=== PATIENT | female | born 1945 | race Caucasian/White ===

== ENCOUNTER 2019-07-14 14:24 | Inpatient (IN) ==
[2019-07-14] MEDS ORDERED: Isovue-370 500 ML BOTTLE IVP ONE (15:01)
[2019-07-14] MEDS ORDERED: 0.9 % Sodium Chloride 1,000 ML IVC ONE (16:43)
[2019-07-14] MEDS ORDERED: Piperacillin/Tazobactam 3.375 GM in 0.9 % Sodium Chloride Mini Bag 100 ML IVPB ONE (16:50)
[2019-07-14] MEDS ORDERED: Naloxone 0.4 MG/ML INJ IVP PRN (17:52)
[2019-07-14] MEDS ORDERED: hydrALAZINE 10 MG TABLET PO PRN (18:31)
[2019-07-14] MEDS: lisinopriL 5 MG TABLET PO SCH (20:19)
[2019-07-14] MEDS: *HR* Heparin 5,000 UNIT/ML VIAL SQ SCH (20:19)
[2019-07-14] MEDS: ALPRAZolam 0.5 MG TABLET PO SCH (22:07)
[2019-07-15] MEDS: Piperacillin/Tazobactam 3.375 GM in 0.9 % Sodium Chloride Mini Bag 100 ML IVPB SCH ×3 (01:32→16:49)
[2019-07-15 02:42] LABS: Basophils # 0.1 K/mcL (0.0-0.2); Basophils % 0.8 %; Eosinophils # 0.2 K/mcL (0.0-0.6); Eosinophils % 2.9 %; Hematocrit 32.6 % (35.3-44.9); Hemoglobin 10.7 g/dL (11.5-15.4); Immature Granulocytes % 0.2 % (0-4); Lymphocytes # 2.5 K/mcL (0.6-4.6); Lymphocytes % 37.9 %; Mean Corpuscular HGB Conc 32.8 g/dL (31.6-35.5); Mean Corpuscular Hemoglobin 31.9 pg (28.0-33.3); Mean Corpuscular Volume 97.3 fL (83.0-100.0); Mean Platelet Volume 9.1 fL (9.4-12.4); Monocytes # 0.5 K/mcL (0.0-1.3); Neutrophils # 3.3 K/mcL (1.6-8.9); Platelet Count 317 K/mcL (140-400); Red Blood Count 3.35 M/mcL (3.82-4.97); Red Cell Distribution Width 13.6 % (11.5-14.5); Segmented Neutrophils % 50.2 %; White Blood Count 6.6 K/mcL (4.3-11.1)
[2019-07-15 02:59] LABS: Calcium 9.1 mg/dL (8.6-10.3); Potassium 4.1 mEq/L (3.5-5.1)
[2019-07-15] MEDS: *HR* Heparin 5,000 UNIT/ML VIAL SQ SCH ×2 (05:44→16:48)
[2019-07-15] MEDS: allopurinoL 100 MG TABLET PO SCH (08:38)
[2019-07-15] MEDS: ALPRAZolam 0.5 MG TABLET PO SCH ×2 (08:38→21:35)
[2019-07-15] MEDS: lisinopriL 5 MG TABLET PO SCH (08:38)
[2019-07-15] MEDS ORDERED: Saliva Stimulant 100ml BOTTLE PO PRN (09:28)
[2019-07-15] MEDS: 0.9 % Sodium Chloride 1,000 ML IVC SCH (12:09)
[2019-07-15] MEDS ORDERED: Doxycycline 100 MG CAPSULE PO ONE (20:49)
[2019-07-16] MEDS: Piperacillin/Tazobactam 3.375 GM in 0.9 % Sodium Chloride Mini Bag 100 ML IVPB SCH ×2 (01:26→08:27)
[2019-07-16] MEDS: 0.9 % Sodium Chloride 1,000 ML IVC SCH (08:26)
[2019-07-16] MEDS: lisinopriL 5 MG TABLET PO SCH (08:27)
[2019-07-16] MEDS: allopurinoL 100 MG TABLET PO SCH (08:27)
[2019-07-16 09:27] LABS: INR 1.1; Prothrombin Time 12.2 Seconds (9.4-12.1)
[2019-07-16 09:32] LABS: Hemoglobin 10.6 g/dL (11.5-15.4); Mean Corpuscular HGB Conc 32.1 g/dL (31.6-35.5); Mean Corpuscular Hemoglobin 31.7 pg (28.0-33.3); Mean Corpuscular Volume 98.8 fL (83.0-100.0); Platelet Count 319 K/mcL (140-400); Red Blood Count 3.34 M/mcL (3.82-4.97); Red Cell Distribution Width 13.9 % (11.5-14.5); White Blood Count 6.8 K/mcL (4.3-11.1)
[2019-07-16 09:40] LABS: Calcium 9.2 mg/dL (8.6-10.3); Magnesium 1.9 mg/dL (1.6-2.6); Potassium 3.7 mEq/L (3.5-5.1)
[2019-07-16] MEDS ORDERED: *HR* HYDROmorphone PF 0.5 MG/0.5 ML SYRINGE IVP PRN (11:28)
[2019-07-16] MEDS ORDERED: *HR* Promethazine 25 MG/ML VIAL IVP PRN (11:28)
[2019-07-16] MEDS ORDERED: Ondansetron 4 MG/2 ML VIAL IVP ONE (11:28)
[2019-07-16] MEDS ORDERED: *HR* OxyCODONE Immed Rel 5 MG TABLET PO PRN (11:28)
[2019-07-16] MEDS ORDERED: Acetaminophen IV 1,000 MG/100 ML INFUS..BTL ONE (11:37)
[2019-07-16] MEDS ORDERED: *HR* PHENYLEPHRINE 1,000 MCG/10 ML SYRINGE IVP ONE (12:17)
[2019-07-16] MEDS ORDERED: Lidocaine -MPF 2% 2 ML VIAL ONE (12:38)
[2019-07-16] MEDS ORDERED: *HR* FentaNYL (PF) 100 MCG/2 ML VIAL ONE (12:38)
[2019-07-16] MEDS ORDERED: Dexamethasone 4 MG/ML VIAL ONE (12:39)
[2019-07-16] MEDS ORDERED: Ondansetron 4 MG/2 ML VIAL ONE (12:39)
[2019-07-16] MEDS ORDERED: ALPRAZolam 0.5 MG TABLET PO PRN (13:39)
[2019-07-16] MEDS ORDERED: hydrALAZINE 10 MG TABLET PO PRN (13:43)
[2019-07-16] MEDS ORDERED: Naloxone 0.4 MG/ML INJ IVP PRN (13:43)
[2019-07-16] MEDS ORDERED: Saliva Stimulant 100ml BOTTLE PO PRN (13:43)
[2019-07-16] MEDS ORDERED: *HR* HYDROcodone/Acet 5/325 mg TABLET PO PRN (13:43)
[2019-07-16] MEDS ORDERED: 0.9 % Sodium Chloride 1,000 ML IVC SCH (13:43)
[2019-07-16] MEDS ORDERED: ALPRAZolam 0.25 MG TABLET PO PRN (14:37)
[2019-07-16 14:51] VITALS: BP 146/79
[2019-07-16] MEDS ORDERED: Piperacillin/Tazobactam 3.375 GM in 0.9 % Sodium Chloride Mini Bag 100 ML IVPB SCH (16:00)
[2019-07-16 17:57] LABS: BUN/Creatinine Ratio 12 (6-26); Blood Urea Nitrogen 13 mg/dL (8-23); Carbon Dioxide 20 mEq/L (23-29); Chloride 106 mEq/L (98-107); Glucose 158 mg/dL (70-105); Osmolality,Calculated 283 (280-300); Sodium 135 mEq/L (136-145); eGFR For African Americans > 60 (> 60); eGFR For Non-African Americans 51 (> 60)
[2019-07-16] MEDS ORDERED: *HR* Heparin 5,000 UNIT/ML VIAL SQ SCH (18:00)
[2019-07-17] MEDS ORDERED: lisinopriL 5 MG TABLET PO SCH (09:00)
[2019-07-17] MEDS ORDERED: allopurinoL 100 MG TABLET PO SCH (09:00)
== END 2019-07-16 17:44 | disposition home or self-care (01) | DRG 660 ==
LOC: EMEROOARM 14:24 → 3ANU 14:24 → SUATTDRO 17:21 → 3ANU 18:09
PROVIDERS: ADMIT Internal Medicine; ATTEND Internal Medicine

== ENCOUNTER 2019-09-16 06:23 | Inpatient (IN) ==
[2019-09-16] MEDS ORDERED: cefOXitin 2,000 MG in Water for inj. (sterile) 20 ML IVP ONE (06:39)
[2019-09-16] MEDS ORDERED: Ringers Solution, Lactated 1,000 ML IVC SCH ×2 (06:45→16:01)
[2019-09-16] MEDS ORDERED: *HR* HYDROmorphone (PF) 1 MG/ML SYRINGE IVP PRN (07:00)
[2019-09-16] MEDS ORDERED: Famotidine 20 MG/2 ML VIAL IVP ONE (07:00)
[2019-09-16] MEDS ORDERED: *HR* Labetalol 20 MG/4 ML SYRINGE IVP PRN (07:00)
[2019-09-16] MEDS ORDERED: *HR* HYDROmorphone 2 MG TABLET PO PRN (07:00)
[2019-09-16] MEDS ORDERED: *HR* Promethazine 25 MG/ML VIAL IVP PRN (07:00)
[2019-09-16] MEDS ORDERED: Pregabalin 75 MG CAPSULE PO ONE (07:00)
[2019-09-16] MEDS ORDERED: *HR* Propofol 200 MG/20 ML VIAL IVP ONE (07:15)
[2019-09-16] MEDS ORDERED: *HR* FentaNYL (PF) 100 MCG/2 ML VIAL ONE (07:15)
[2019-09-16] MEDS ORDERED: Ondansetron 4 MG/2 ML VIAL ONE (07:17)
[2019-09-16] MEDS ORDERED: *HR* Succinylcholine 200 MG/10 ML VIAL IVP ONE (07:17)
[2019-09-16] MEDS ORDERED: Lidocaine -MPF 2% 2 ML VIAL ONE ×3 (07:17→09:19)
[2019-09-16] MEDS ORDERED: *HR* Rocuronium Bromide 50 MG/5 ML VIAL ONE ×2 (07:17→09:19)
[2019-09-16] MEDS ORDERED: Lidocaine HCL 4 ML Topical Solution (Laryng-O-Jet Kit Sterile Pak) TP ONE (07:17)
[2019-09-16] MEDS ORDERED: Dexamethasone 4 MG/ML VIAL ONE (07:17)
[2019-09-16] MEDS ORDERED: Isovue-300 50ML VIAL ONE (07:19)
[2019-09-16] MEDS ORDERED: EPHEDrine 50 MG/ML VIAL ONE (07:22)
[2019-09-16] MEDS ORDERED: Albumin Human 5% 25.0 GM/500 ML IV.SOLN ONE (08:03)
[2019-09-16] MEDS ORDERED: *HR* Vasopressin 20 UNIT/ML VIAL ONE (08:03)
[2019-09-16] MEDS ORDERED: Acetaminophen IV 1,000 MG/100 ML INFUS..BTL ONE (08:03)
[2019-09-16] MEDS ORDERED: *HR* PHENYLEPHRINE 1,000 MCG/10 ML SYRINGE IVP ONE ×2 (09:00→13:12)
[2019-09-16] MEDS ORDERED: MetroNIDAZOLE 500 MG/100 ML 500 MG/100 ML BAG IVPB ONE ×2 (09:01→09:27)
[2019-09-16] MEDS ORDERED: *HR* HYDROMORPHONE 2 MG/ML VIAL ONE (09:13)
[2019-09-16] MEDS ORDERED: CefOXitin 2,000 MG VIAL ONE (12:38)
[2019-09-16] MEDS ORDERED: Bumetanide 1 MG TABLET PO SCH (16:01)
[2019-09-16] MEDS ORDERED: Morphine PCA 30 MG/ 30 ML 30 ML PCA.VIAL IVC PRN (16:01)
[2019-09-16] MEDS ORDERED: Naloxone 0.4 MG/ML INJ IVP PRN (16:01)
[2019-09-16] MEDS: Acetaminophen IV 1,000 MG/100 ML INFUS..BTL IVPB ONE (16:54)
[2019-09-16] MEDS ORDERED: 0.9 % Sodium Chloride 1,000 ML IV ONE (17:50)
[2019-09-16 18:34] LABS: Basophils % 0.2 %; Hematocrit 32.7 % (35.3-44.9); Hemoglobin 10.7 g/dL (11.5-15.4); Immature Granulocytes % 0.3 % (0-4); Lymphocytes # 0.5 K/mcL (0.6-4.6); Lymphocytes % 4.5 %; Mean Corpuscular HGB Conc 32.7 g/dL (31.6-35.5); Mean Corpuscular Hemoglobin 31.9 pg (28.0-33.3); Mean Corpuscular Volume 97.6 fL (83.0-100.0); Mean Platelet Volume 9.7 fL (9.4-12.4); Monocytes # 0.5 K/mcL (0.0-1.3); Monocytes % 4.5 %; Neutrophils # 10.4 K/mcL (1.6-8.9); Platelet Count 271 K/mcL (140-400); Red Blood Count 3.35 M/mcL (3.82-4.97); Segmented Neutrophils % 90.5 %; White Blood Count 11.5 K/mcL (4.3-11.1)
[2019-09-16] MEDS: ALPRAZolam 0.5 MG TABLET PO SCH (23:13)
[2019-09-17] MEDS ORDERED: Insulin LISPRO 300 UNITS/3 ML VIAL SQ ONE (00:53)
[2019-09-17 02:07] LABS: Calcium 8.3 mg/dL (8.6-10.3); Magnesium 1.8 mg/dL (1.6-2.6); Phosphorous 3.8 mg/dL (2.7-4.5); Potassium 4.3 mEq/L (3.5-5.1)
[2019-09-17] MEDS ORDERED: Dextrose Gel 15 GM/37.5 ML TUBE PO PRN ×2 (02:19)
[2019-09-17] MEDS ORDERED: *HR* Dextrose 50 % in Water (Vial) 50 ML VIAL IVP PRN (02:19)
[2019-09-17] MEDS ORDERED: D5% in Water 1,000 ML IVC PRN (02:19)
[2019-09-17] MEDS: Insulin LISPRO 300 UNITS/3 ML VIAL SQ SCH ×4 (04:45→18:06)
[2019-09-17] MEDS ORDERED: Insulin LISPRO 300 UNITS/3 ML VIAL SQ SCH ×2 (06:00→08:00)
[2019-09-17 06:16] LABS: Hematocrit 30.5 % (35.3-44.9); Hemoglobin 10.1 g/dL (11.5-15.4); Immature Granulocytes % 0.3 % (0-4); Lymphocytes # 0.9 K/mcL (0.6-4.6); Mean Corpuscular HGB Conc 33.1 g/dL (31.6-35.5); Mean Corpuscular Hemoglobin 32.1 pg (28.0-33.3); Mean Corpuscular Volume 96.8 fL (83.0-100.0); Mean Platelet Volume 9.4 fL (9.4-12.4); Monocytes # 0.8 K/mcL (0.0-1.3); Monocytes % 5.8 %; Neutrophils # 11.4 K/mcL (1.6-8.9); Platelet Count 241 K/mcL (140-400); Red Blood Count 3.15 M/mcL (3.82-4.97); Red Cell Distribution Width 14.1 % (11.5-14.5); Segmented Neutrophils % 86.9 %; White Blood Count 13.1 K/mcL (4.3-11.1)
[2019-09-17 06:29] LABS: Magnesium 1.9 mg/dL (1.6-2.6); Phosphorous 3.1 mg/dL (2.7-4.5)
[2019-09-17] MEDS ORDERED: Morphine PCA 30 MG/ 30 ML 30 ML PCA.VIAL IVC PRN (07:58)
[2019-09-17] MEDS: allopurinoL 100 MG TABLET PO SCH (08:01)
[2019-09-17] MEDS: Aspirin Enteric Coated 81 MG Tablet PO SCH (08:01)
[2019-09-17] MEDS: 0.9 % Sodium Chloride 1,000 ML IVC SCH ×3 (08:17→15:40)
[2019-09-17] MEDS ORDERED: amLODIPine 5 MG TABLET PO SCH (09:00)
[2019-09-17] MEDS ORDERED: Morphine Sulfate 2 MG/ML SYRINGE IVP PRN (11:11)
[2019-09-17] MEDS: *HR* OxyCODONE Immed Rel 5 MG TABLET PO PRN (11:29)
[2019-09-17] MEDS ORDERED: Piperacillin/Tazobactam 3.375 GM in 0.9 % Sodium Chloride Mini Bag 100 ML IVPB SCH (12:56)
[2019-09-17] MEDS ORDERED: Acetaminophen IV 1,000 MG/100 ML INFUS..BTL IVPB ONE (18:22)
[2019-09-17] MEDS: Acetaminophen IV 1,000 MG/100 ML INFUS..BTL IVPB ONE (20:38)
[2019-09-17] MEDS: ALPRAZolam 0.5 MG TABLET PO SCH (20:41)
[2019-09-17] MEDS: Piperacillin/Tazobactam 3.375 GM in 0.9 % Sodium Chloride Mini Bag 100 ML IVPB SCH (20:41)
[2019-09-18] MEDS: 0.9 % Sodium Chloride 1,000 ML IVC SCH ×3 (00:23→08:25)
[2019-09-18] MEDS: Insulin LISPRO 300 UNITS/3 ML VIAL SQ SCH ×5 (00:24→23:55)
[2019-09-18 05:00] LABS: Basophils % 0.1 %; Hematocrit 29.8 % (35.3-44.9); Hemoglobin 9.6 g/dL (11.5-15.4); Immature Granulocytes % 0.3 % (0-4); Lymphocytes # 1.8 K/mcL (0.6-4.6); Lymphocytes % 13.2 %; Mean Corpuscular HGB Conc 32.2 g/dL (31.6-35.5); Mean Corpuscular Hemoglobin 32.7 pg (28.0-33.3); Mean Corpuscular Volume 101.4 fL (83.0-100.0); Mean Platelet Volume 9.5 fL (9.4-12.4); Monocytes # 0.9 K/mcL (0.0-1.3); Monocytes % 6.9 %; Neutrophils # 10.6 K/mcL (1.6-8.9); Platelet Count 229 K/mcL (140-400); Red Blood Count 2.94 M/mcL (3.82-4.97); Red Cell Distribution Width 14.6 % (11.5-14.5); Segmented Neutrophils % 79.5 %; White Blood Count 13.3 K/mcL (4.3-11.1)
[2019-09-18 05:22] LABS: BUN/Creatinine Ratio 18 (6-26); Blood Urea Nitrogen 17 mg/dL (8-23); Calcium 8.3 mg/dL (8.6-10.3); Carbon Dioxide 20 mEq/L (23-29); Chloride 114 mEq/L (98-107); Glucose 128 mg/dL (70-105); Osmolality,Calculated 295 (280-300); Sodium 141 mEq/L (136-145); eGFR For African Americans > 60 (> 60); eGFR For Non-African Americans 56 (> 60)
[2019-09-18] MEDS: Acetaminophen IV 1,000 MG/100 ML INFUS..BTL IVPB SCH ×4 (06:27→23:54)
[2019-09-18] MEDS: Piperacillin/Tazobactam 3.375 GM in 0.9 % Sodium Chloride Mini Bag 100 ML IVPB SCH ×3 (06:28→21:53)
[2019-09-18] MEDS ORDERED: *HR* Enoxaparin 40 MG/0.4 ML SYRINGE SQ SCH (07:00)
[2019-09-18] MEDS: *HR* Heparin 5,000 UNIT/ML VIAL SQ SCH ×3 (09:52→21:54)
[2019-09-18] MEDS: allopurinoL 100 MG TABLET PO SCH (09:52)
[2019-09-18] MEDS: Aspirin Enteric Coated 81 MG Tablet PO SCH (09:52)
[2019-09-18] MEDS: Ringers Solution, Lactated 1,000 ML IVC SCH (12:40)
[2019-09-18] MEDS: Ondansetron 4 MG/2 ML VIAL IVP PRN ×2 (17:14→23:54)
[2019-09-18] MEDS: ALPRAZolam 0.5 MG TABLET PO SCH (21:53)
[2019-09-19] MEDS: Ringers Solution, Lactated 1,000 ML IVC SCH ×2 (00:26→11:51)
[2019-09-19] MEDS: Ondansetron 4 MG/2 ML VIAL IVP PRN (04:59)
[2019-09-19] MEDS: Piperacillin/Tazobactam 3.375 GM in 0.9 % Sodium Chloride Mini Bag 100 ML IVPB SCH ×3 (05:06→20:49)
[2019-09-19] MEDS: *HR* Heparin 5,000 UNIT/ML VIAL SQ SCH ×3 (05:07→22:22)
[2019-09-19] MEDS: Acetaminophen IV 1,000 MG/100 ML INFUS..BTL IVPB SCH ×3 (05:10→17:22)
[2019-09-19] MEDS: Insulin LISPRO 300 UNITS/3 ML VIAL SQ SCH ×3 (05:46→17:20)
[2019-09-19] MEDS ORDERED: Ondansetron 4 MG/2 ML VIAL IVP PRN (06:19)
[2019-09-19 06:31] LABS: Basophils % 0.2 %; Eosinophils # 0.1 K/mcL (0.0-0.6); Eosinophils % 0.4 %; Hematocrit 29.5 % (35.3-44.9); Hemoglobin 9.4 g/dL (11.5-15.4); Immature Granulocytes % 0.6 % (0-4); Lymphocytes # 2.1 K/mcL (0.6-4.6); Lymphocytes % 16.8 %; Mean Corpuscular HGB Conc 31.9 g/dL (31.6-35.5); Mean Corpuscular Hemoglobin 32.1 pg (28.0-33.3); Mean Corpuscular Volume 100.7 fL (83.0-100.0); Mean Platelet Volume 9.6 fL (9.4-12.4); Monocytes # 0.6 K/mcL (0.0-1.3); Monocytes % 4.9 %; Neutrophils # 9.5 K/mcL (1.6-8.9); Platelet Count 241 K/mcL (140-400); Red Blood Count 2.93 M/mcL (3.82-4.97); Red Cell Distribution Width 14.6 % (11.5-14.5); Segmented Neutrophils % 77.1 %; White Blood Count 12.4 K/mcL (4.3-11.1)
[2019-09-19 06:49] LABS: BUN/Creatinine Ratio 16 (6-26); Blood Urea Nitrogen 14 mg/dL (8-23); Calcium 8.1 mg/dL (8.6-10.3); Carbon Dioxide 22 mEq/L (23-29); Chloride 112 mEq/L (98-107); Glucose 130 mg/dL (70-105); Osmolality,Calculated 296 (280-300); Potassium 3.7 mEq/L (3.5-5.1); Sodium 142 mEq/L (136-145); eGFR For African Americans > 60 (> 60); eGFR For Non-African Americans > 60 (> 60)
[2019-09-19] MEDS: Aspirin Enteric Coated 81 MG Tablet PO SCH (07:24)
[2019-09-19] MEDS: allopurinoL 100 MG TABLET PO SCH (07:24)
[2019-09-19] MEDS: lisinopriL 5 MG TABLET PO SCH (07:41)
[2019-09-19] MEDS: *HR* OxyCODONE Immed Rel 5 MG TABLET PO PRN (10:09)
[2019-09-19] MEDS: *HR* Promethazine 25 MG/ML VIAL IVP PRN ×3 (10:09→22:17)
[2019-09-19] MEDS: Ondansetron 4 MG/2 ML VIAL IVP SCH ×2 (11:51→17:20)
[2019-09-19] MEDS ORDERED: Chloraseptic Spray 177 ML BOTTLE MM PRN (20:31)
[2019-09-19] MEDS: ALPRAZolam 0.5 MG TABLET PO SCH (22:23)
[2019-09-19] MEDS ORDERED: *HR* LORazepam 2 MG/ML VIAL IVP ONE (22:37)
[2019-09-20] MEDS: Ondansetron 4 MG/2 ML VIAL IVP SCH ×4 (00:06→18:34)
[2019-09-20] MEDS: Acetaminophen IV 1,000 MG/100 ML INFUS..BTL IVPB SCH ×4 (00:07→18:34)
[2019-09-20] MEDS: Ringers Solution, Lactated 1,000 ML IVC SCH ×2 (00:09→19:04)
[2019-09-20] MEDS: Insulin LISPRO 300 UNITS/3 ML VIAL SQ SCH ×5 (00:50→22:40)
[2019-09-20 04:27] LABS: Basophils % 0.1 %; Eosinophils % 0.1 %; Hematocrit 29.2 % (35.3-44.9); Hemoglobin 9.3 g/dL (11.5-15.4); Lymphocytes # 1.5 K/mcL (0.6-4.6); Lymphocytes % 11.5 %; Mean Corpuscular HGB Conc 31.8 g/dL (31.6-35.5); Mean Corpuscular Hemoglobin 31.4 pg (28.0-33.3); Mean Corpuscular Volume 98.6 fL (83.0-100.0); Mean Platelet Volume 9.9 fL (9.4-12.4); Monocytes # 0.6 K/mcL (0.0-1.3); Monocytes % 4.3 %; Neutrophils # 10.7 K/mcL (1.6-8.9); Platelet Count 283 K/mcL (140-400); Red Blood Count 2.96 M/mcL (3.82-4.97); Red Cell Distribution Width 14.4 % (11.5-14.5); White Blood Count 12.9 K/mcL (4.3-11.1)
[2019-09-20 04:44] LABS: BUN/Creatinine Ratio 18 (6-26); Blood Urea Nitrogen 16 mg/dL (8-23); Carbon Dioxide 23 mEq/L (23-29); Chloride 111 mEq/L (98-107); Glucose 159 mg/dL (70-105); Magnesium 1.8 mg/dL (1.6-2.6); Osmolality,Calculated 303 (280-300); Potassium 3.3 mEq/L (3.5-5.1); Sodium 144 mEq/L (136-145); eGFR For African Americans > 60 (> 60); eGFR For Non-African Americans > 60 (> 60)
[2019-09-20] MEDS: Piperacillin/Tazobactam 3.375 GM in 0.9 % Sodium Chloride Mini Bag 100 ML IVPB SCH ×3 (05:53→22:11)
[2019-09-20] MEDS: *HR* Heparin 5,000 UNIT/ML VIAL SQ SCH ×3 (05:53→22:10)
[2019-09-20] MEDS: *HR* Promethazine 25 MG/ML VIAL IVP PRN (07:11)
[2019-09-20] MEDS ORDERED: Scopolamine Patch 1.5 MG PATCH.TD72 TD ONE (08:33)
[2019-09-20] MEDS: Aspirin Enteric Coated 81 MG Tablet PO SCH (09:37)
[2019-09-20] MEDS: allopurinoL 100 MG TABLET PO SCH (09:38)
[2019-09-20] MEDS: lisinopriL 5 MG TABLET PO SCH (09:38)
[2019-09-20] MEDS ORDERED: *HR* Labetalol 20 MG/4 ML SYRINGE IVP PRN (11:38)
[2019-09-20] MEDS: Lactobacillus 1 EACH CAP.SPRINK PO SCH (22:09)
[2019-09-20] MEDS: Loratadine 10 MG TABLET PO SCH (22:09)
[2019-09-20] MEDS: ALPRAZolam 0.5 MG TABLET PO SCH (22:10)
[2019-09-21] MEDS: Ondansetron 4 MG/2 ML VIAL IVP SCH ×2 (00:36→06:44)
[2019-09-21] MEDS: Acetaminophen IV 1,000 MG/100 ML INFUS..BTL IVPB SCH ×2 (00:36→06:45)
[2019-09-21 04:00] LABS: Basophils % 0.1 %; Eosinophils % 0.3 %; Hematocrit 24.9 % (35.3-44.9); Hemoglobin 7.9 g/dL (11.5-15.4); Immature Granulocytes % 0.6 % (0-4); Lymphocytes # 1.9 K/mcL (0.6-4.6); Lymphocytes % 16.8 %; Mean Corpuscular HGB Conc 31.7 g/dL (31.6-35.5); Mean Corpuscular Hemoglobin 31.2 pg (28.0-33.3); Mean Corpuscular Volume 98.4 fL (83.0-100.0); Mean Platelet Volume 9.6 fL (9.4-12.4); Monocytes # 0.6 K/mcL (0.0-1.3); Monocytes % 5.5 %; Neutrophils # 8.8 K/mcL (1.6-8.9); Platelet Count 254 K/mcL (140-400); Red Blood Count 2.53 M/mcL (3.82-4.97); Red Cell Distribution Width 14.6 % (11.5-14.5); Segmented Neutrophils % 76.7 %; White Blood Count 11.4 K/mcL (4.3-11.1)
[2019-09-21 04:18] LABS: Calcium 8.4 mg/dL (8.6-10.3); Potassium 3.2 mEq/L (3.5-5.1)
[2019-09-21] MEDS: *HR* Heparin 5,000 UNIT/ML VIAL SQ SCH ×3 (06:44→21:40)
[2019-09-21] MEDS: Piperacillin/Tazobactam 3.375 GM in 0.9 % Sodium Chloride Mini Bag 100 ML IVPB SCH ×3 (06:45→21:38)
[2019-09-21] MEDS: Loratadine 10 MG TABLET PO SCH (09:37)
[2019-09-21] MEDS: Aspirin Enteric Coated 81 MG Tablet PO SCH (09:37)
[2019-09-21] MEDS: Insulin LISPRO 300 UNITS/3 ML VIAL SQ SCH ×4 (09:38→21:38)
[2019-09-21] MEDS: allopurinoL 100 MG TABLET PO SCH (09:38)
[2019-09-21] MEDS: Lactobacillus 1 EACH CAP.SPRINK PO SCH (09:38)
[2019-09-21] MEDS: lisinopriL 5 MG TABLET PO SCH (09:38)
[2019-09-21] MEDS ORDERED: Acetaminophen 325 MG TABLET PO PRN (13:05)
[2019-09-21] MEDS ORDERED: Ondansetron 4 MG/2 ML VIAL IVP PRN (13:15)
[2019-09-21] MEDS: ALPRAZolam 0.5 MG TABLET PO SCH (21:41)
[2019-09-22] MEDS: Piperacillin/Tazobactam 3.375 GM in 0.9 % Sodium Chloride Mini Bag 100 ML IVPB SCH (05:14)
[2019-09-22] MEDS: *HR* Heparin 5,000 UNIT/ML VIAL SQ SCH (05:26)
[2019-09-22 06:57] VITALS: BP 137/76
[2019-09-22] MEDS ORDERED: amLODIPine 5 MG TABLET PO SCH (09:00)
[2019-09-22] MEDS: Insulin LISPRO 300 UNITS/3 ML VIAL SQ SCH (10:01)
[2019-09-22] MEDS: Lactobacillus 1 EACH CAP.SPRINK PO SCH (10:01)
[2019-09-22] MEDS: Aspirin Enteric Coated 81 MG Tablet PO SCH (10:02)
[2019-09-22] MEDS: Loratadine 10 MG TABLET PO SCH (10:02)
[2019-09-22] MEDS: allopurinoL 100 MG TABLET PO SCH (10:02)
[2019-09-22] MEDS: lisinopriL 5 MG TABLET PO SCH (10:02)
== END 2019-09-22 12:21 | disposition home health service (06) | DRG 330 ==
LOC: SAMDAY 06:23 → 3ANU 08:02
PROVIDERS: ADMIT Surgery; ATTEND Surgery